=== PATIENT | female | born 1985 | race Caucasian/White ===

== ENCOUNTER 2017-12-20 11:12 | Emergency (ER) | payer OTHER ==
[2017-12-20 11:18] VITALS: BP 129/89
--- NOTE | 2017-12-20 14:43 | ED ---
Skin Complaint - HPI Summary HPI Summary: Patient is a 31-year-old female presenting to the ED with a concern for a abscess under the right axilla. States has been present over 1 week. She states she has had one in the past that has needed to be lanced and had improved afterwards with some antibiotics. MRSA positive. Endorses 10/10 pain with erythema, warmth and raised area without drainage. Takes Suboxone. - History of Current Complaint Chief Complaint: EDRashSkinAbscess Time Seen by Provider: 12/20/17 12:48 Stated Complaint: RT ARMPIT SWELLING Hx Obtained From: Patient Hx Last Menstrual Period: 02/21/16 Onset/Duration: Started Hours Ago Skin Exposure Onset/Duration: Hours Ago Timing: Constant Onset Severity: Moderate Current Severity: Moderate Pain Intensity: 8 Pain Scale Used: 0-10 Numeric Skin Location: Diffuse Aggravating Symptom(s): Touch Alleviating Symptom(s): Nothing - Allergy/Home Medications Allergies/Adverse Reactions: Allergies Allergy/AdvReac Type Severity Reaction Status Date / Time venlafaxine AdvReac Severe Agitation Verified 12/20/17 11:18 PMH/Surg Hx/FS Hx/Imm Hx Previously Healthy: Yes Endocrine/Hematology History: Reports: Hx Systemic Lupus Erythematosus Denies: Hx Diabetes, Hx Thyroid Disease Cardiovascular History: Denies: Hx Hypertension, Hx Pacemaker/ICD Respiratory History: Denies: Hx Asthma, Hx Chronic Obstructive Pulmonary Disease (COPD) GI History: Denies: Hx Ulcer Musculoskeletal History: Reports: Hx Back Problems, Other Musculoskeletal History - lumbar stenosis Sensory History: Denies: Hx Hearing Aid Psychiatric History: Denies: Hx Panic Disorder - Surgical History Surgery Procedure, Year, and Place: [facility] Dental - Immunization History Hx Pertussis Vaccination: No Immunizations Up to Date: Unable to Obtain/Confirm Infectious Disease History: Yes Infectious Disease History: Reports: Hx of Known/Suspected MRSA - Under arm Denies: Hx Clostridium Difficile, Hx Hepatitis, Hx Human Immunodeficiency Virus (HIV), Hx Shingles, Hx Tuberculosis, Hx Known/Suspected VRE, Hx Known/ Suspected VRSA, History Other Infectious Disease, Traveled Outside the [place] in Last 30 Days - Family History Known Family History: Positive: Other - suicide - Social History Occupation: Unemployed Lives: With Family Alcohol Use: None Hx Substance Use: Yes Substance Use Type: Reports: Prescribed Substance Use Comment - Amount & Last Used: oxycodone 7.5 mg 3x/day for chronic back pain Hx Tobacco Use: Yes Smoking Status (MU): Current Every Day Smoker Type: Cigarettes Amount Used/How Often: 1/2 PPD Length of Time of Smoking/Using Tobacco: began at 18 years of age Have You Smoked in the Last Year: Yes Review of Systems Constitutional: Negative Negative: Fever, Chills, Fatigue, Skin Diaphoresis Negative: Palpitations, Chest Pain Negative: Shortness Of Breath, Cough Genitourinary: Negative Positive: no symptoms reported, see HPI Negative: Arthralgia, Myalgia Positive: Other - right axillary fluctuant mass 3.5x1cm Neurological: Negative Psychological: Normal All Other Systems Reviewed And Are Negative: Yes Physical Exam Triage Information Reviewed: Yes Vital Signs On Initial Exam: Initial Vitals Temp Pulse Resp BP Pulse Ox 98.4 F 104 14 129/89 98 12/20/17 11:15 12/20/17 11:15 12/20/17 11:15 12/20/17 11:15 12/20/17 11:15 Vital Signs Reviewed: Yes Appearance: Positive: Well-Appearing, Well-Nourished Skin: Positive: Warm, Skin Color Reflects Adequate Perfusion, Mass @ - R axilla , Other - right axillary fluctuant mass 3.5x1cm Head/Face: Positive: Normal Head/Face Inspection Eyes: Positive: EOMI, LUKE, Conjunctiva Clear Neck: Positive: Supple, No Lymphadenopathy Respiratory/Lung Sounds: Positive: Clear to Auscultation, Breath Sounds Present Cardiovascular: Positive: RRR, Pulses are Symmetrical in both Upper and Lower Extremities Musculoskeletal: Positive: Normal, Strength/ROM Intact Neurological: Positive: Speech Normal Psychiatric: Positive: Normal, Affect/Mood Appropriate AVPU Assessment: Alert Diagnostics - Vital Signs Vital Signs Temp Pulse Resp BP Pulse Ox 12/20/17 11:15 98.4 F 104 14 129/89 98 - Laboratory Lab Statement: Any lab studies that have been ordered have been reviewed, and results considered in the medical decision making process. Course/Dx - Course Course Of Treatment: On physical examination, there is a 3cm x 1 cm slightly fluctuant abscess to the right axilla. I have discussed that this will need to have an I&D most likely to resolve and will not resolve with antibiotics alone. She is agreeable to an I&D at this time. Cleanse wound thoroughly with povidone-iodine. Attempted to use local anesthetic to the area, and patient was unable to tolerate the pain. She is refusing further evaluation and treatment at this time is requesting discharge. I have again stated to the patient this will likely not resolve without an I&D and not resolve with antibiotics alone, however patient is requesting to try it for the next few days and will return if the abscess becomes any larger. She is discharged with prescription for Bactrim. - Diagnoses Provider Diagnoses: Abscess of right axilla Discharge - Sign-Out/Discharge Documenting (check all that apply): Discharge/Admit/Transfer - Discharge Plan Condition: Stable Disposition: HOME Prescriptions: Sulfamethox/Trimethoprim DS* [Bactrim DS 800/160 TAB*] 1 tab PO BID #10 tab MDD 2 Patient Education Materials: Abscess (ED) Referrals: Kash Sánchez MD [Primary Care Provider] - Additional Instructions: If this becomes any larger, please return to the ED immediately Bactrim twice daily x 5 days Heat to the area This will need to be drained if the size does not improve - Billing Disposition and Condition Condition: STABLE Disposition: Home
== END 2017-12-20 14:05 | disposition home or self-care (01) ==
LOC: ED 11:12
DX: L02.411 Cutaneous abscess of right axilla (principal); Z53.29 Procedure and treatment not carried out because of patient's decision for other reasons; F17.210 Nicotine dependence, cigarettes, uncomplicated; Z86.14 Personal history of Methicillin resistant Staphylococcus aureus infection; Z88.8 Allergy status to other drugs, medicaments and biological substances
CPT/HCPCS: 99282